=== PATIENT | male | born 1990 | race Caucasian/White ===

== ENCOUNTER 2023-07-23 07:21 | Observation (INO) | payer SELFPAY ==
[2023-07-23] VITALS (17 sets, daily range): BP systolic 131–167; BP diastolic 68–95; PULSE 71–103; RESP 12–27; TEMP 36.1–36.9; O2SAT 95–100
--- NOTE | 2023-07-23 | ECHO_ITS ---
Patient Info Name: Shaggy Avila Age: 32 years : 1990 Gender: Male Ht: 72 in Wt: 275 lbs BSA: 2.56 m2 HR: 98 bpm BP: 141 / 76 mmHg Heart Rhythm: Sinus Rhythm Technical Quality: Good Exam Date: 07/23/2023 12:39 PM Exam Location: Echo Lab Patient Status: Outpatient Admit Date: 07/23/2023 Staff Ordering Physician: Sara Doshi MD Workers Compensation Defense Attorney: Damian Chavez RDCS Attending Provider: Nik Ray MD Referring Physician: Glenda NORIEGA; Exam Type: CA echo doppler color flow Study Info Indications - CHEST PAIN, ELEVATED TROPONIN Complete two-dimensional, color flow and Doppler transthoracic echocardiogram is performed. Summary 1. Complete two-dimensional, color flow and Doppler transthoracic echocardiogram is performed. 2. Normal left ventricular size and thickness with good contractility of all segments. Normal diastolic function. Ejection fraction 60-65%. 3. No significant valve disease. 4. No pericardial effusion. 5. Normal estimated pulmonary pressure. 6. Normal sinus rhythm. Left Ventricle Left ventricular chamber dimension is normal. Left ventricular systolic function is normal, estimated at 60-65%. There is no increased left ventricular wall thickness. Left ventricular septal wall motion is normal. The left ventricular diastolic function is normal. Right Ventricle Right ventricular chamber dimension is normal. Right ventricular systolic function is normal. Left Atria Left atrial chamber dimension is normal. Right Atria Right atrial chamber dimension is normal. Aortic Valve The aortic valve is trileaflet. There is no aortic valve sclerosis. There is no aortic valve stenosis. There is no aortic valve regurgitation. Pulmonic Valve The pulmonic valve is normal. There is no pulmonic valve stenosis. There is no pulmonic regurgitation. Mitral Valve The mitral valve has normal leaflets. There is no mitral valve stenosis. There is no mitral valve regurgitation. Tricuspid Valve The tricuspid valve leaflets are normal. There is no significant tricuspid valve stenosis. There is trace tricuspid valve regurgitation. No pulmonary hypertension, estimated pulmonary arterial systolic pressure is 29 mmHg. Pericardium/Pleural The pericardium appears normal. There is no pericardial effusion. Inferior Vena Cava Not well visualized inferior vena cava with >50% collapse upon inspiration consistent with Empty right atrial pressure, 10 mmHg. Aorta The aortic root size at the sinus of Valsalva is normal. The prox ascending aorta size is normal. Left Ventricular Outflow Tract Name Value Normal LVOT 2D LVOT Diameter 2.0 cm LVOT Doppler LVOT Peak Gradient 4 mmHg LVOT Mean Gradient 2 mmHg LVOT VTI 29 cm LVOT VTI/AV VTI Ratio 1.0 LVOT Stroke Volume 90 ml LVOT CO 4.9 l/min LVOT CI 1.9 l/min/m2 Pulmonic Valve Name Value Normal -----
--- NOTE | ~2023-07-23 | XR_ITS ---
XR chest 2V DATE: 07/23/2023 08:11 INDICATION: Midsternal and left-sided chest pain beginning today TECHNIQUE: AP and lateral views COMPARISON: None FINDINGS: Normal heart size. No hilar or mediastinal enlargement. No pulmonary infiltrate or consolid ation, pleural effusion or pulmonary vascular congestion or pneumothorax. IMPRESSION: No active cardiopulmonary disease Reviewed, dictated and finalized at location A. CRANE OPERATOR
--- NOTE | 2023-07-23 07:23 | ECG_ITS ---
Measurements Intervals [place] Rate: 71 P: 9 MI: 155 QRS: -21 QRSD: 99 T: 4 QT: 383 QTc: 417 Interpretive Statements SINUS RHYTHM VOLTAGE CRITERIA FOR LVH [MEETS CRITERIA IN ONE OF: R(aVL), S(V1), R(V5), R(V5/V6)+S(V1)] NO PREVIOUS ECG AVAILABLE FOR COMPARISON Electronically Signed On 07-23-2023 9:11:11 [facility]OSPITAL LIAISON by Moni Holden M.D.
[2023-07-23 07:54] LABS: Basophils Percent Auto 0.5 % (0.2-1.2); Eosinophils Absolute Auto 0.1 K/mm3 (0-0.3); Eosinophils Percent Auto 0.6 % (0-4.4); Hematocrit 43.6 % (42.0-52.0); Hemoglobin 14.7 g/dL (14.0-18.0); Immature Granulocyte Absolute 0.02 K/mm3 (0.00-0.031); Immature Granulocyte Percent A 0.2 % (0-0.5); Lymphocytes Absolute Auto 1.58 K/mm3 (0.9-3.2); Lymphocytes Percent Auto 19.2 % (18.3-44.2); Mean Corpuscular HGB Conc 33.7 g/dl (32-36); Mean Corpuscular Hemoglobin 28.8 pg (26-34); Mean Corpuscular Volume 85.3 fl (80-100); Mean Platelet Volume 10.8 fl (7.4-10.4); Monocytes Absolute Auto 0.4 K/mm3 (0.1-0.6); Monocytes Percent Auto 5.1 % (2.6-8.5); Neutrophils Absolute Auto 6.1 K/mm3 (1.3-6.7); Neutrophils Percent Auto 74.4 % (45.5-73.1); Platelet Count Result 235 k/mm3 (150-375); Red Blood Count 5.11 M/mm3 (4.6-6.20); Red Cell Distribution Width 12.4 % (11.5-14.5); White Blood Count 8.2 K/mm3 (4.5-10.0)
[2023-07-23 08:08] LABS: Alanine Aminotransferase 42 U/L (6-50); Alkaline Phosphatase 108 U/L (38-126); Anion Gap 13 mmol/L (8-16); Aspartate Amino Transferase 40 U/L (17-59); Bilirubin,Total 0.4 mg/dL (0.2-1.3); Blood Urea Nitrogen 16 mg/dL (9-20); Calcium 9.3 mg/dL (8.4-10.2); Carbon Dioxide 24 mmol/L (22-30); Chloride 101 mmol/L (98-107); Estimated CRCL calculation 127 ml/min; Estimated Glomerular Filt Rate > 60; Glucose 150 mg/dL (65-110); Lipase 94 U/L (23-300); Potassium 4.1 mmol/L (3.4-5.0); Sodium 138 mmol/L (137-145)
[2023-07-23 08:22] LABS: Troponin I 0.057 ng/mL (0.000-0.034)
[2023-07-23 08:31] LABS: INR 0.9; Partial Thromboplastin Time 25.5 SECONDS (22.3-36.8); Prothrombin Time 12.5 Seconds (11.1-14.7)
--- NOTE | 2023-07-23 09:12 | ED.CHESTPAIN ---
HPI - Chest Pain General Chief Complaint: Chest Pain Stated Complaint: chest pain Time Seen by Provider: 07/23/23 07:23 Source: patient, EMS, RN notes reviewed and old records reviewed Mode of arrival: EMS Limitations: no limitations History of Present Illness HPI narrative: This is a 32 year old male who presents for evaluation of chest pain. PAtient reports left sternal chest pain that started around 6 am. He states patient was sharp and nonradiating. He reports it has been constant but it is not as severe any more. He denies associated nausea, vomiting URI symptoms, fever, chills, cough or shortness of breath. He denies history of similar pain in the past. Related Data Home Medications Medication Instructions Recorded Confirmed No Home Medications 07/23/23 07/23/23 Allergies Allergy/AdvReac Type Severity Reaction Status Date / Time No Known Allergies Allergy Verified 07/23/23 11:33 Review of Systems Review of Systems: All systems reviewed & are unremarkable except as noted in HPI and below PMFSH Past Medical History Medical History (Updated 07/23/23 @ 17:09 by Sara Doshi MD) Patient denies medical problems Surgical History Surgical History (Updated 07/23/23 @ 12:36 by Moni Holden MD) H/O brain surgery Had brain surgery when he was 1 or 1 years old for a cyst No pertinent past surgical history Family History Family History (Updated 07/23/23 @ 12:36 by Moni Holden MD) Father Alive and well Mother Alive and well Social History Social History (Updated 07/23/23 @ 14:45 by Nik Ray MD) Social History: Lives with his father. Lifelong nonsmoker. No alcohol or drug use. He lives with his father, brothers, sisters and a nephew. Graduated from high school. Employed in industrial cleaning. Full Code. Nominates his father to be the indivdual that would make medical decisions for him if he is unable. Smoking status: Never smoker Alcohol intake: never Do You Feel Safe in your Home?: Yes Lack of Transportation: No Lack of Food: Never True Current Housing: I Have Housing Concerned About Future Housing: No Difficulty Paying Gas/Electric Bills: No Difficulty Paying for Meds: No Currently Unemployed: No Education: High School Diploma/GED Difficulty w/ Childcare or Family Care: No Spiritual care concerns: No Exam Const: General: no acute distress and alert Nutritional Appearance: well nourished Orientation/consciousness: patient oriented x3 Other: poor hygiene HENMT: Head: normal to inspection Eyes: EOM: EOMs intact bilaterally Chest: Chest palpation & inspection: normal inspection of the chest Resp: Effort & Inspection: normal respiratory effort Auscultation: clear to auscultation bilaterally Cardio: Rate: regular rate Rhythm: regular rhythm Heart sounds: no murmurs GI: GI Palp: Yes Soft to palpation, No Tenderness to palpation present (GI), No Guarding due to palpation present (GI), No Rigid due to palpation and No Hernia present Auscultation: normal bowel sounds Skin: General skin exam: normal color Rashes: no rashes Wounds: no wounds Neuro: General: patient oriented x3, moves all extremities and CN's II-XI intact bilaterally Psych: Mental Status: mental status grossly normal Affect: normal affect Attitude: cooperative Course Reevaluation(s) Reevaluation #1: I Discussed with patient that he will need to be admitted for evaluation of his heart due to elevated troponin. He states he understands. Date: 07/23/23 Time: 09:15 Consultations Consultation #1: I spoke with Dr. Holden with cardiology. She agrees patient should be admitted to hospitalist. Agrees with aspirin and ECHO. They will consult Date: 07/23/23 Time: 09:35 Consultation #2: Dr. Ray accepts to hospitalist service. REquest d dimer to assess for PE before admission. Date: 07/23/23 Time: 09:37 Vital Signs Vital signs: Vital Signs
[2023-07-23] MEDS: ASPIRIN 81 MG CHEWABLE TABLET 324 MG PO (09:38)
[2023-07-23 09:44] LABS: Amphetamine Screen Urine Negative (Negative); Barbiturate Screen Urine Negative (Negative); Benzodiazepines Screen Urine Negative (Negative); Cannabinoid Screen Urine Negative (Negative); Cocaine Screen Urine Negative (Negative); Methadone Screen Urine Negative (Negative); Opiate Screen Urine Negative (Negative); Phencyclidine Screen Urine Negative (Negative)
[2023-07-23 10:12] LABS: D Dimer 0.28 ug/mL (<0.48)
--- NOTE | 2023-07-23 10:15 | ECG_ITS ---
Measurements Intervals [place] Rate: 78 P: 23 [place]: 165 QRS: -26 QRSD: 94 T: 2 QT: 369 QTc: 423 Interpretive Statements SINUS RHYTHM POSSIBLE LEFT ATRIAL ENLARGEMENT [-0.1mV P WAVE IN V1/V2] POSSIBLE LEFT VENTRICULAR HYPERTROPHY [VOLTAGE CRITERIA PLUS LAE OR QRS WIDENING] POOR R-WAVE PROGRESSION COMPARED TO ECG 07/23/2023 07:32:28 NO SIGNIFICANT CHANGES Electronically Signed On 07-23-2023 19:50:27 GRAIN ELEVATOR OPERATOR by Moni Holden M.D.
[2023-07-23 11:06] LABS: Troponin I < 0.012 ng/mL (0.000-0.034)
--- NOTE | 2023-07-23 11:33 | ADMGEN ---
This patient, Shaggy Avila, was admitted to IMU Room 212-01. Patient/family oriented to hospital policies and general routines including ID bracelet, bed and alarms, visiting hours, pain management, procedures, bathroom and other care routines, personal items, smoking policy, room service/diet, and visiting hours. Information on how to activate the Rapid Response Team has been discussed. Patient/Family are encouraged to report perceived risks to care and to ask questions if they do not understand what they are told or what they should do.
--- NOTE | 2023-07-23 12:07 | PM.CNCAR ---
Assessment and Plan Assessment and plan (1) Chest pain: Code(s): R07.9 - Chest pain, unspecified Status: Acute Assessment and Plan: Very unusual situation with chest pain and 1 elevated troponin in a young man with no risk factors. Also unusual that the 2nd troponin was normal. Coronary disease seems very unlikely in this age range, with no risk factors, unless there something unusual like coronary artery aneurysm etc. However, no H/O Kawasaki's dz. Consider a myocarditis as well but no EKG changes, elevated white count etc. Nothing on exam to suggest pericarditis. D-dimer was normal. No fever. and the CP does not appear musculoskeletal on exam. --echo --I have asked the lab to rerun the 1st 2 troponins --continue serial troponins --ASA, SL NTG --Further recommendations to follow. (2) Elevated troponin: Code(s): R79.89 - Other specified abnormal findings of blood chemistry Status: Acute Assessment and Plan: One slightly elevated troponin, follow-up troponin was normal, which is very unusual. Unclear which is correct --lab is re- running the 1st 2 troponins (3) Elevated blood pressure reading: Code(s): R03.0 - Elevated blood-pressure reading, without diagnosis of hypertension Status: Acute Assessment and Plan: Blood pressure has been mildly elevated this admission History of Present Illness History of Present Illness Consult date/time: 07/23/23 12:07 Reason For Visit: chest pain Narrative: Shaggy Avila is a 32-year-old male whom we are asked to see at the request of Dr. Doshi for advice and opinion regarding his chest pain and elevated troponin, in consultation. The patient has been a healthy individual in his normal state of health recently. This morning he awoke around 6:00 a.m. with very intense sharp substernal chest discomfort and could not get comfortable. It then transition to a tight feeling. No better sitting up, worse with walking, questionably better lying down, nonpleuritic, nontender. There is no associated nausea vomiting shortness of breath. His father brought him to the emergency room. The pain has improved spontaneously, but has not completely resolved. No history of hypertension, diabetes, smoking, high cholesterol. No drug use. No family history of CAD. No sick contacts, fevers, cough. Has been able to do heavy work at his job with no particular problems. No unusually physical activity recently. Troponin 0.057, then less than 0.012 Drug screen negative White cell count normal D Dimer normal EKG 07/23/2023 7:32 a.m.: NSR, possible LVH, poor R-wave progression EKG 07/23/2023 10:34 a.m.: NSR, LVH, poor R-wave progression Both EKGs personally reviewed, no ischemic changes, no CA depression. Chest x-ray: No acute cardiopulmonary disease. Personally reviewed, agree. Review of Systems Constitutional: Constitutional: Denies fever(s) Eyes: Eyes: Reports no additional eye complaints ENT: Reports system reviewed and no additional complaints, except as documented Cardiovascular: Cardiovascular: Reports chest pain, Denies pedal edema, Denies lightheadedness and Denies dyspnea Respiratory: Respiratory: Denies chest congestion and Denies dyspnea Gastrointestinal: Gastrointestinal: Denies abdominal pain and Denies hematochezia Genitourinary: Genitourinary: Denies hematuria Musculoskeletal: Musculoskeletal: Reports no additional musculoskeletal complaints Integumentary/Breasts: Skin/Breast: Reports system reviewed and no additional complaints, except as docu Neurologic: Reports system reviewed and no additional complaints, except as documented and Denies behavioral changes Psychiatric: Psychiatric: Denies behavioral changes [facility] Past Medical History Medical History (Updated 07/23/23 @ 12:39 by Moni Holden MD) Patient denies medical problems Surgical History Surgical History (Updated 07/23/23 @ 12:36 by Hosea
[2023-07-23] MEDS: ONDANSETRON INJ 4 MG/2 ML VIAL IV PUSH (13:28)
[2023-07-23 13:51] LABS: Troponin I < 0.012 ng/mL (0.000-0.034)
--- NOTE | 2023-07-23 14:34 | PM.IMHP ---
H&P: HPI History of Present Illness Date/Time: 07/23/23 14:34 Chief Complaint: Chest pain Narrative: 32yo healthy male who presents with acute onset of chest pain. Patient was awoken this morning around 6am with sharp, stabbing chest pain. Never had this before. Located in the lower sternal area. Not associated with SOB, nausea, vomiting or diaphoresis. no radiation to the pain. Pain was slightly palpable but not pleuritic. Not on medications. No new OTC medications. 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 No fever, chills, headache, vision changes, hearing changes, abdominal pain, back pain or urinary symptoms. He denies having pain or other symptoms when eating. No recent travel and no sick contacts. He presented to the ED for evalution. In the ED, he was hemodynamically stable. BP was elevated. he was mildly tachypneic but not tachycardic or hypxoc. CBC and CMP normal ecept for glucose of 150. Troponin 0.057 with 2nd and 3rd value normal. UDS negative. D-dimer was normal. Lipase normal. CXR was clear and EKG showing normal sinus rhythm with voltage criteria for LVH. he was given aspirin and admitted for further care. After admission and after just finishing his Echo, the patient had an episode of nausea and vomiting. Review of Systems Review of Systems: All systems reviewed & are unremarkable except as noted in HPI and below PMFSH Past Medical History Medical History (Updated 07/23/23 @ 14:52 by Nik Ray MD) Patient denies medical problems Surgical History Surgical History (Updated 07/23/23 @ 12:36 by Moni Holden MD) H/O brain surgery Had brain surgery when he was 1 or 1 years old for a cyst No pertinent past surgical history Family History Family History (Updated 07/23/23 @ 12:36 by Moni Holden MD) Father Alive and well Mother Alive and well Social History Social History (Updated 07/23/23 @ 14:45 by Nik Ray MD) Social History: Lives with his father. Lifelong nonsmoker. No alcohol or drug use. He lives with his father, brothers, sisters and a nephew. Graduated from high school. Employed in industrial cleaning. Full Code. Nominates his father to be the indivdual that would make medical decisions for him if he is unable. Smoking status: Never smoker Alcohol intake: never Do You Feel Safe in your Home?: Yes Lack of Transportation: No Lack of Food: Never True Current Housing: I Have Housing Concerned About Future Housing: No Difficulty Paying Gas/Electric Bills: No Difficulty Paying for Meds: No Currently Unemployed: No Education: High School Diploma/GED Difficulty w/ Childcare or Family Care: No Spiritual care concerns: No Meds Home Medications and Allergies Home Medications Medication Instructions Recorded Confirmed Type No Home Medications 07/23/23 07/23/23 History Allergies Allergy/AdvReac Type Severity Reaction Status Date / Time No Known Allergies Allergy Verified 07/23/23 11:33 Vital Signs Vital Signs - 24 hr 07/23/23 07:27 07/23/23 07:27 07/23/23 07:32 Temperature 97.6 F Pulse Rate 71 76 77 Respiratory Rate 16 27 H 21 H Blood Pressure 153/88 H 153/88 H 134/91 H Pulse Oximetry 96 97 95 Oxygen Delivery 07/23/23 08:13 07/23/23 08:17 07/23/23 08:41 Temperature Pulse Rate 81 79 81 Respiratory Rate 23 H 12 13 Blood Pressure 135/88 131/72 149/78 H Pulse Oximetry 97 99 97 Oxygen Delivery 07/23/23 08:47 07/23/23 10:38 07/23/23 11:01 Temperature Pulse Rate 74 78 79 Respiratory Rate 14 25 H 26 H Blood Pressure 141/76 H 133/68 138/89 Pulse Oximetry 98 100 Oxygen Delivery 07/23/23 12:00 07/23/23 12:00 07/23/23 12:00 Temperature 97.8 F Pulse Rate 94 103 H Respiratory Rate 20 Blood Pressure 167/86 H Pulse Oximetry 99 Oxygen Delivery Room Air Exam Narrative: AF 97.8 167/86 103 20 99% ra Gen - well-nourished, well-developed unkempt mal
[2023-07-23 16:20] LABS: Glucose Point of Care 143 mg/dl (65-105)
[2023-07-23] MEDS: PANTOPRAZOLE SODIUM IV 40 MG VIAL IV PUSH (16:33)
[2023-07-23 17:19] LABS: SARS-CoV-2 RNA PCR Negative (Negative)
[2023-07-23 20:16] LABS: Glucose Point of Care 132 mg/dl (65-105)
[2023-07-23] MEDS: PANTOPRAZOLE 40 MG TABLET PO (21:05)
[2023-07-24] VITALS (11 sets, daily range): BP systolic 126–131; BP diastolic 55–86; PULSE 72–90; RESP 18–21; TEMP 35.6–36.5; O2SAT 95–97
[2023-07-24 04:57] LABS: Basophils Percent Auto 0.4 % (0.2-1.2); Eosinophils Absolute Auto 0.1 K/mm3 (0-0.3); Hematocrit 42.8 % (42.0-52.0); Hemoglobin 14.4 g/dL (14.0-18.0); Immature Granulocyte Absolute 0.02 K/mm3 (0.00-0.031); Immature Granulocyte Percent A 0.3 % (0-0.5); Lymphocytes Absolute Auto 1.85 K/mm3 (0.9-3.2); Lymphocytes Percent Auto 23.2 % (18.3-44.2); Mean Corpuscular HGB Conc 33.6 g/dl (32-36); Mean Corpuscular Hemoglobin 29.1 pg (26-34); Mean Corpuscular Volume 86.6 fl (80-100); Mean Platelet Volume 11.3 fl (7.4-10.4); Monocytes Absolute Auto 0.7 K/mm3 (0.1-0.6); Monocytes Percent Auto 8.3 % (2.6-8.5); Neutrophils Absolute Auto 5.3 K/mm3 (1.3-6.7); Neutrophils Percent Auto 66.8 % (45.5-73.1); Platelet Count Result 238 k/mm3 (150-375); Red Blood Count 4.94 M/mm3 (4.6-6.20); Red Cell Distribution Width 12.8 % (11.5-14.5)
[2023-07-24 05:03] LABS: Alanine Aminotransferase 35 U/L (6-50); Albumin Level 4.5 g/dL (3.5-5.1); Alkaline Phosphatase 87 U/L (38-126); Anion Gap 11 mmol/L (8-16); Aspartate Amino Transferase 27 U/L (17-59); Bilirubin,Total 0.7 mg/dL (0.2-1.3); Blood Urea Nitrogen 12 mg/dL (9-20); Calcium 8.9 mg/dL (8.4-10.2); Carbon Dioxide 22 mmol/L (22-30); Chloride 103 mmol/L (98-107); Estimated CRCL calculation 123 ml/min; Estimated Glomerular Filt Rate > 60; Glucose 117 mg/dL (65-110); Lipase 60 U/L (23-300); Sodium 136 mmol/L (137-145)
[2023-07-24 05:09] LABS: Hemoglobin A1C 5.7 % (<5.7)
[2023-07-24 08:09] LABS: Glucose Point of Care 121 mg/dl (65-105)
[2023-07-24] MEDS: ASPIRIN 81 MG CHEWABLE TABLET PO (08:32)
[2023-07-24] MEDS: PANTOPRAZOLE 40 MG TABLET PO (08:32)
[2023-07-24 12:13] LABS: Glucose Point of Care 109 mg/dl (65-105)
--- NOTE | 2023-07-24 15:17 | PM.DS ---
DS: Admitting Diagnosis Discharge Date 07/24/23 Admitting Diagnosis Chest pain DS: Discharge Diagnosis Discharge Diagnosis (1) Chest pain: Code(s): R07.9 - Chest pain, unspecified Status: Acute (2) Elevated troponin: Code(s): R79.89 - Other specified abnormal findings of blood chemistry Status: Acute (3) Elevated blood pressure reading: Code(s): R03.0 - Elevated blood-pressure reading, without diagnosis of hypertension Status: Acute (4) Abdominal pain: Code(s): R10.9 - Unspecified abdominal pain Status: Acute (5) Nausea & vomiting: Code(s): R11.2 - Nausea with vomiting, unspecified Status: Acute (6) H/O brain surgery: Code(s): Z98.890 - Other specified postprocedural states Status: Acute (7) Hyperglycemia: Code(s): R73.9 - Hyperglycemia, unspecified Status: Acute Plan Patient presents to the ED with complaints of acute onset chest pain occurred at rest. Atypical presentation for ischemia but troponin was elevated. Cardiology was consulted. The troponin was re-ran and returned normal. This explains why the 2nd and 3rd troponin had normalized quickly. As such, patient did not have elevated troponins. He does have elevated blood pressure and probably has undiagnosed hypertension especially given the EKG findings. Echocardiogram has been ordered results are pending. He has some mild epigastric pain probably gastritis. Suspect his chest pain and now nausea with vomiting consistent with esophageal reflux or gastritis or gastroenteritis. COVID can cause GI symptoms so we will check COVID test. Lipase is normal. Will repeat lipase and other lab values in the morning. Will start Protonix. Will continue aspirin. Glucose elevated and could be stress response ut will check A1c and place on sliding scale protocol. Further recommendation as course dictates. DS: Summary Hospital Course Reason for hospitalization: 32yo healthy male who presents with acute onset of chest pain.? Please see H&P for details. Hospital Course: Patient presents to the ED with complaints of acute onset chest pain occurred at rest. Atypical presentation for ischemia but troponin was elevated. Cardiology was consulted. The troponin was re-ran and returned normal. This explains why the 2nd and 3rd troponin had normalized quickly. As such, patient did not have elevated troponins. He did have elevated blood pressure and may have undiagnosed hypertension especially given the EKG findings. Echocardiogram ws normal with EF 60%. He has some mild epigastric pain probably gastritis. Suspect his chest pain and now nausea with vomiting consistent with esophageal reflux or gastritis or gastroenteritis. COVID-19 PCR negative. Lipase was normal. Started Protonix. Glucose elevated and probably stress response. A1c 5.7%. No recurrent chest pain. He overall did well was able be discharged home on 07/24/2023. Adhering to a healthy lifestyle was discussed with patient. Status at Discharge Cognitive/behavioral status at discharge: Stable Time Spent with Patient Time attestation: Total time spent providing and/or coordinating discharge services: 35 minutes Time spent: Greater than 30 minutes Exam Narrative: AF 96.1 131/86 86 18 97% ra Gen - NARD Chest - CTA bilaterally, nml RR CV - RRR S1/S2. Tele showing no significant dysrhythmias Abd - Soft, NT/ND, Positive BS Ext - No pedal edema Neuro - Alert and oriented. Nonfocal exam. Psych - Nml mood and affect Skin - Warm and dry DS: Data Data Completed and Pending Labs on day of discharge: Labs from last 24 hours 07/24/23 07/24/23 07/24/23 11:49 08:00 04:29 WBC 8.0 RBC 4.94 Hgb 14.4 Hct 42.8 MCV 86.6 MCH 29.1 MCHC 33.6 RDW 12.8 Plt Count 238 MPV 11.3 H Immature Gran % (Auto) 0.3 Neut % (Auto) 66.8 Lymph % (Auto) 23.2 [place] % (Auto) 8
== END 2023-07-24 16:33 | disposition home or self-care (01) ==
LOC: ANHED 08:27 → ANHIMU 11:05
PROVIDERS: Admitting Provider Internal Medicine; Emergency Provider General Practice; Visit Provider Internal Medicine
DX: R07.9 Chest pain, unspecified (principal); R73.9 Hyperglycemia, unspecified; R10.9 Unspecified abdominal pain; R94.31 Abnormal electrocardiogram [ECG] [EKG]; R03.0 Elevated blood-pressure reading, without diagnosis of hypertension; R06.82 Tachypnea, not elsewhere classified; Z20.822 Contact with and (suspected) exposure to COVID-19; R11.2 Nausea with vomiting, unspecified; Z98.890 Other specified postprocedural states
CPT/HCPCS: 36415; 71046; 80053; 80307; 82948; 83036; 83690; 84443; 84484; 85025; 85380; 85610; 85730; 87635; 93005; 93306; 96374; 96375; A9270; C9113; G0378; J2405

== ENCOUNTER 2025-06-22 05:46 | Emergency (ER) | payer SELFPAY ==
[2025-06-22] VITALS (22 sets, daily range): BP systolic 137–148; BP diastolic 82–93; PULSE 85–105; RESP 14–26; O2SAT 95–100
--- NOTE | ~2025-06-22 | XR_ITS ---
Examination: XR chest 1V portable Clinical History: chest pain Comparison: 07/23/2023 Technique: Portable AP Findings: Heart size normal. Lungs clear. No acute bony abnormality. IMPRESSION: 1. No acute cardiopulmonary findings given portable technique. Reviewed, dictated and finalized at location R. OF IT
--- NOTE | 2025-06-22 05:49 | ECG_ITS ---
Test Date: 2025-06-22 06:15:27 Measurements Intervals [place] Rate: 91 P: 34 SD: 173 QRS: -18 QRSD: 96 T: 18 QT: 350 QTc: 431 Interpretive Statements SINUS RHYTHM VOLTAGE CRITERIA FOR LVH [MEETS CRITERIA IN ONE OF: R(aVL), S(V1), R(V5), R(V5/V6)+S(V1)] No previous ECG available for comparison Electronically Signed On 06-22-2025 06:43:04 BENCH MANAGER by Delano George M.D.
[2025-06-22] MEDS: ASPIRIN 81 MG CHEWABLE TABLET 324 MG PO (06:01)
--- NOTE | 2025-06-22 06:15 | ED_ITS ---
HPI - Chest Pain General Chief Complaint: Chest Pain <Nicolas Xiong MD - Last Filed: 06/22/25 06:58> Stated Complaint: chest pain <Nicolas Xiong MD - Last Filed: 06/22/25 06:58> Time Seen by Provider: 06/22/25 05:50 <Nicolas Xiong MD - Last Filed: 06/22/25 06:58> History of Present Illness HPI narrative: 34-year-old male presenting to the emergency department today with chest pain that woke up from sleep. Patient states he was not doing any exertion or strenuous and woke up around 1:00 a.m. with sharp chest pain in the center of his chest. Pain did not respond to Tylenol at home and was getting worse. [place] like somebody was sitting on his chest according to the patient. Has had similar chest pains in the past and was admitted to the hospital 2 years ago where he was found to have elevated troponins but negative cardiac workup otherwise and seen by Cardiology at that time. Has not had any issues in the last 2 years and does not take any medications or follow with Cardiology presently. Denies any abdominal pain or back pain. No fever, chills. No jaw pain or radiating pain from his chest. Patient presents via walk-in triage and is diaphoretic on arrival. Placed in room 2 for evaluation. <Nicolas Xiong MD - Last Filed: 06/22/25 06:58> Related Data Allergies/Adverse Reactions: Allergies Allergy/AdvReac Type Severity Reaction Status Date / Time No Known Allergies Allergy Verified 06/22/25 06:11 <Nicolas Xiong MD - Last Filed: 06/22/25 06:58> Review of Systems 2 Review of Systems: as reviewed above in HPI <Nicolas Xiong MD - Last Filed: 06/22/25 06:58> All systems reviewed & are unremarkable except as noted in HPI and below < Nicolas Xiong MD - Last Filed: 06/22/25 06:58> [facility] Past Medical History Medical History: Medical History Patient denies medical problems <Nicolas Xiong MD - Last Filed: 06/22/25 06:58> Surgical History Surgical History: Surgical History H/O brain surgery Had brain surgery when he was 1 or 1 years old for a cyst No pertinent past surgical history <Nicolas Xiong MD - Last Filed: 06/22/25 06:58> Family History Family History: Family History Father Alive and well Mother Alive and well <Nicolas Xiong MD - Last Filed: 06/22/25 06:58> Social History Social History: Social History Social History: Lives with his father. Lifelong nonsmoker. No alcohol or drug use. He lives with his father, brothers, sisters and a nephew. Graduated from high school. Employed in [employer]. [employer]. Nominates his father to be the indivdual that would make medical decisions for him if he is unable. Smoking status: Never smoker Alcohol intake: never Do You Feel Safe in your Home?: Yes Lack of Transportation: No Lack of Food: Never True Current Housing: I Have Housing Concerned About Future Housing: No Difficulty Paying Gas/Electric Bills: No Difficulty Paying for Meds: No Currently Unemployed: No Education: High School Diploma/GED Difficulty w/ Childcare or Family Care: No Spiritual care concerns: No <Nicolas Xiong MD - Last Filed: 06/22/25 06:58> Exam 2 Narrative: GENERAL: Diaphoretic and in distress, awake alert answering all questions appropriately HEAD: [Normocephalic, atraumatic.] EYES: [PERRLA and EOMI.] ENT: Nares clear, no rhinorrhea or epistaxis. Mucous membranes moist. NECK: Supple. CHEST: [Clear to auscultation. No respiratory distress.] HEART: [Regular rate and rhythm]. No murmur heard. [Normal peripheral pulses.] ABDOMEN: [Soft, nondistended], [nontender], [No rigidity or guarding] EXTREMITIES: Normal range of motion. [No edema.] SKIN: Warm, dry, no rash. NEURO: [No focal deficits]. Alert and oriented [x3.] PSYCH: [Normal mood and affect.] <Nicolas Xiong MD - Last Filed: 06/22/25 06:58> Course Course Emergency Course: Patient resting comfortably. No chest pain here. Troponin negative x3. Feel patient is appropriate for discharge home. May have had esophageal spasm. Will start on PPI. Discussed need for follow-up with a primary care physician. Discussed return to ER should symptoms recur. Patient verbalized understanding. Discharge home. <Cirilo Watts MD - Last Filed: 06/22/25 12:38> Vital Signs Vital signs: Vital Signs Pulse Rate 88 06/22/25 05:49 Respiratory Rate 14 06/22/25 05:49 Pulse Oximetry 98 06/22/25 05:49 Oxygen Delivery Room Air 06/22/25 05:49 Pulse Rate 96 06/22/25 12:00 Respiratory Rate 22 H 06/22/25 12:00 Blood Pressure 146/86 H 06/22/25 12:00 Pulse Oximetry 98 06/22/25 12:00 Oxygen Delivery Room Air 06/22/25 05:58 <Nicloas Xiong MD - Last Filed: 06/22/25 06:58> Vital Signs Pulse Rate 88 06/22/25 05:49 Respiratory Rate 14 06/22/25 05:49 Pulse Oximetry 98 06/22/25 05:49 Oxygen Delivery Room Air 06/22/25 05:49 Pulse Rate 96 06/22/25 12:00 Respiratory Rate 22 H 06/22/25 12:00 Blood Pressure 146/86 H 06/22/25 12:00 Pulse Oximetry 98 06/22/25 12:00 Oxygen Delivery Room Air 06/22/25 05:58 <Cirilo Watts MD - Last Filed: 06/22/25 12:38> MDM - Chest Pain MDM Narrative Medical decision making narrative: 34-year-old male presenting to the emergency department today with chest pain that woke up from sleep. Patient states he was not doing any exertion or strenuous and woke up around 1:00 a.m. with sharp chest pain in the center of his chest. Pain did not respond to Tylenol at home and was getting worse. [place] like somebody was sitting on his chest according to the patient. Has had similar chest pains in the past and was admitted to the hospital 2 years ago where he was found to have elevated troponins but negative cardiac workup otherwise and seen by Cardiology at that time. Has not had any issues in the last 2 years and does not take any medications or follow with Cardiology presently. Denies any abdominal pain or back pain. No fever, chills. No jaw pain or radiating pain from his chest. Patient presents via walk-in triage and is diaphoretic on arrival. Placed in room 2 for evaluation. patient is mildly hypertensive in the 140s 150 systolic but saturating 99% on room air without any tachycardia. No tachypnea. He is diaphoretic and appears in distress but able to answer all questions appropriately. At this time given his chest pain and diaphoresis concern is for potential ACS, coronary vasospasm, less likely thromboembolic event or aortic process such as dissection or aneurysm. Patient has no cardiac risk factors but has had elevated troponins previously several years ago. Cardiac workup ordered this time including serial troponins and a dimer. Patient is given Dilaudid and nitroglycerin placed on director database and frequently re-evaluated. EKG shows no ST segment elevations or depressions. Does have LVH and appear similar to previous EKGs. Patient did have improvement in pain but still rates it 9/10. Given nitroglycerin topical ointment on top of his dilaudid that he received. No longer sweating and diaphoretic. Vital signs remained stable. Could be potentially something like vasospastic angina as he has had same presentation previously with elevated troponins with no findings on workup otherwise at that time. Awaiting laboratory studies and troponin. Patient care signed over to morning physician pending completion of workup and final disposition. < Nicolsa Xiong MD - Last Filed: 06/22/25 06:58> Medical Records Data Attestation: I reviewed the patient's medical records. <Nicolas Xiong MD - Last Filed: 06/22/25 06:58> Lab Data Attestation: I reviewed the patient's lab results. <Nicolas Xiong MD - Last Filed: 06/22/25 06:58> Result diagrams: 06/22/25 06:29 06/22/25 06:29 <Nicolas Xiong MD - Last Filed: 06/22/25 06:58> Labs: Lab Results 06/22/25 06/22/25 06/22/25 Range/Units 06:29 07:18 09:02 WBC 10.6 H (4.5-10.0) K/mm3 RBC 4.93 (4.6-6.20) M/mm3 Hgb 14.2 (14.0-18.0) g/dL Hct 42.1 (42.0-52.0) % MCV 85.4 (80-100) fl MCH 28.8 (26-34) pg MCHC 33.7 (32-36) g/dl RDW 12.8 (11.5-14.5) % Plt Count 219 (150-375) k/mm3 MPV 11.2 H (7.4-10.4) fl Immature Gran % (Auto) 0.5 (0-0.5) % Neut % (Auto) 84.6 H (45.5-73.1) % Lymph % (Auto) 10.7 L (18.3-44.2) % Clinch % (Auto) 3.9 (2.6-8.5) % Eos % (Auto) 0.1 (0-4.4) % Baso % (Auto) 0.2 (0.2-1.2) % Lymph # (Auto) 1.13 (0.9-3.2) K/mm3 Clinch # (Auto) 0.4 (0.1-0.6) K/mm3 Eos # (Auto) 0.0 (0-0.3) K/mm3 Baso # (Auto) 0.0 (0.0-0.1) K/mm3 Abs Immat Gran (auto) 0.05 H (0.00-0.031) K/mm3 Absolute Neuts (auto) 9.0 H (1.3-6.7) K/mm3 Absolute Nucleated RBC 0.000 (0.0-0.012) K/mm3 Nucleated RBC % 0.0 (0.0-0.2) % PT 12.4 (11.1-14.7) Seconds INR 0.9 APTT 24.8 (22.3-36.8) Seconds D-Dimer < 0.27 (<0.48) ug/mL Sodium 135 L (137-145) mmol/L Potassium 3.9 (3.4-5.0) mmol/L Chloride 99 (98-107) mmol/L Carbon Dioxide 23 (22-30) mmol/L Anion Gap 13 H (4-12) mmol/L BUN 14 (9-20) mg/dL Creatinine 0.84 (0.7-1.3) mg/dL Estim Creat Clear Calc 141 ml/min Estimated GFR > 60 (59 - ) Glucose 136 H (65-110) mg/dL Calcium 9.1 (8.4-10.2) mg/dL Total Bilirubin 0.5 (0.2-1.3) mg/dL AST 41 (17-59) U/L ALT 47 (6-50) U/L Alkaline Phosphatase 88 (38-126) U/L Troponin I < 0.012 < 0.012 (0.000-0.034) ng/mL Total Protein 8.4 H (6.3-8.2) g/dL Albumin 5.0 (3.5-5.1) g/dL Lipase 85 (23-300) U/L Urine Opiates Screen Positive A (Negative) Urine Methadone Screen Negative (Negative) Ur Barbiturates Screen Negative (Negative) Ur Phencyclidine Scrn Negative (Negative) Ur Amphetamine Screen Negative (Negative) U Benzodiazepines Scrn Negative (Negative) Urine Cocaine Screen Negative (Negative) U Cannabinoids Screen Negative (Negative) 06/22/25 Range/Units 11:41 WBC (4.5-10.0) K/mm3 RBC (4.6-6.20) M/mm3 Hgb (14.0-18.0) g/dL Hct (42.0-52.0) % MCV (80-100) fl MCH (26-34) pg MCHC (32-36) g/dl RDW (11.5-14.5) % Plt Count (150-375) k/mm3 MPV (7.4-10.4) fl Immature Gran % (Auto) (0-0.5) % Neut % (Auto) (45.5-73.1) % Lymph % (Auto) (18.3-44.2) % Clinch % (Auto) (2.6-8.5) % Eos % (Auto) (0-4.4) % Baso % (Auto) (0.2-1.2) % Lymph # (Auto) (0.9-3.2) K/mm3 Clinch # (Auto) (0.1-0.6) K/mm3 Eos # (Auto) (0-0.3) K/mm3 Baso # (Auto) (0.0-0.1) K/mm3 Abs Immat Gran (auto) (0.00-0.031) K/mm3 Absolute Neuts (auto) (1.3-6.7) K/mm3 Absolute Nucleated RBC (0.0-0.012) K/mm3 Nucleated RBC % (0.0-0.2) % PT (11.1-14.7) Seconds INR APTT (22.3-36.8) Seconds D-Dimer (<0.48) ug/mL Sodium (137-145) mmol/L Potassium (3.4-5.0) mmol/L Chloride (98-107) mmol/L Carbon Dioxide (22-30) mmol/L Anion Gap (4-12) mmol/L BUN (9-20) mg/dL Creatinine (0.7-1.3) mg/dL Estim Creat Clear Calc ml/min Estimated GFR (59 - ) Glucose (65-110) mg/dL Calcium (8.4-10.2) mg/dL Total Bilirubin (0.2-1.3) mg/dL AST (17-59) U/L ALT (6-50) U/L Alkaline Phosphatase (38-126) U/L Troponin I < 0.012 (0.000-0.034) ng/mL Total Protein (6.3-8.2) g/dL Albumin (3.5-5.1) g/dL Lipase (23-300) U/L Urine Opiates Screen (Negative) Urine Methadone Screen (Negative) Ur Barbiturates Screen (Negative) Ur Phencyclidine Scrn (Negative) Ur Amphetamine Screen (Negative) U Benzodiazepines Scrn (Negative) Urine Cocaine Screen (Negative) U Cannabinoids Screen (Negative) <Nicolas Xiong MD - Last Filed: 06/22/25 06:58> Lab Results 06/22/25 06/22/25 06/22/25 Range/Units 06:29 07:18 09:02 WBC 10.6 H (4.5-10.0) K/mm3 RBC 4.93 (4.6-6.20) M/mm3 Hgb 14.2 (14.0-18.0) g/dL Hct 42.1 (42.0-52.0) % MCV 85.4 (80-100) fl MCH 28.8 (26-34) pg MCHC 33.7 (32-36) g/dl RDW 12.8 (11.5-14.5) % Plt Count 219 (150-375) k/mm3 MPV 11.2 H (7.4-10.4) fl Immature Gran % (Auto) 0.5 (0-0.5) % Neut % (Auto) 84.6 H (45.5-73.1) % Lymph % (Auto) 10.7 L (18.3-44.2) % Clinch % (Auto) 3.9 (2.6-8.5) % Eos % (Auto) 0.1 (0-4.4) % Baso % (Auto) 0.2 (0.2-1.2) % Lymph # (Auto) 1.13 (0.9-3.2) K/mm3 Clinch # (Auto) 0.4 (0.1-0.6) K/mm3 Eos # (Auto) 0.0 (0-0.3) K/mm3 Baso # (Auto) 0.0 (0.0-0.1) K/mm3 Abs Immat Gran (auto) 0.05 H (0.00-0.031) K/mm3 Absolute Neuts (auto) 9.0 H (1.3-6.7) K/mm3 Absolute Nucleated RBC 0.000 (0.0-0.012) K/mm3 Nucleated RBC % 0.0 (0.0-0.2) % PT 12.4 (11.1-14.7) Seconds INR 0.9 APTT 24.8 (22.3-36.8) Seconds D-Dimer < 0.27 (<0.48) ug/mL Sodium 135 L (137-145) mmol/L Potassium 3.9 (3.4-5.0) mmol/L Chloride 99 (98-107) mmol/L Carbon Dioxide 23 (22-30) mmol/L Anion Gap 13 H (4-12) mmol/L BUN 14 (9-20) mg/dL Creatinine 0.84 (0.7-1.3) mg/dL Estim Creat Clear Calc 141 ml/min Estimated GFR > 60 (59 - ) Glucose 136 H (65-110) mg/dL Calcium 9.1 (8.4-10.2) mg/dL Total Bilirubin 0.5 (0.2-1.3) mg/dL AST 41 (17-59) U/L ALT 47 (6-50) U/L Alkaline Phosphatase 88 (38-126) U/L Troponin I < 0.012 < 0.012 (0.000-0.034) ng/mL Total Protein 8.4 H (6.3-8.2) g/dL Albumin 5.0 (3.5-5.1) g/dL Lipase 85 (23-300) U/L Urine Opiates Screen Positive A (Negative) Urine Methadone Screen Negative (Negative) Ur Barbiturates Screen Negative (Negative) Ur Phencyclidine Scrn Negative (Negative) Ur Amphetamine Screen Negative (Negative) U Benzodiazepines Scrn Negative (Negative) Urine Cocaine Screen Negative (Negative) U Cannabinoids Screen Negative (Negative) 06/22/25 Range/Units 11:41 WBC (4.5-10.0) K/mm3 RBC (4.6-6.20) M/mm3 Hgb (14.0-18.0) g/dL Hct (42.0-52.0) % MCV (80-100) fl MCH (26-34) pg MCHC (32-36) g/dl RDW (11.5-14.5) % Plt Count (150-375) k/mm3 MPV (7.4-10.4) fl Immature Gran % (Auto) (0-0.5) % Neut % (Auto) (45.5-73.1) % Lymph % (Auto) (18.3-44.2) % Clinch % (Auto) (2.6-8.5) % Eos % (Auto) (0-4.4) % Baso % (Auto) (0.2-1.2) % Lymph # (Auto) (0.9-3.2) K/mm3 Clinch # (Auto) (0.1-0.6) K/mm3 Eos # (Auto) (0-0.3) K/mm3 Baso # (Auto) (0.0-0.1) K/mm3 Abs Immat Gran (auto) (0.00-0.031) K/mm3 Absolute Neuts (auto) (1.3-6.7) K/mm3 Absolute Nucleated RBC (0.0-0.012) K/mm3 Nucleated RBC % (0.0-0.2) % PT (11.1-14.7) Seconds INR APTT (22.3-36.8) Seconds D-Dimer (<0.48) ug/mL Sodium (137-145) mmol/L Potassium (3.4-5.0) mmol/L Chloride (98-107) mmol/L Carbon Dioxide (22-30) mmol/L Anion Gap (4-12) mmol/L BUN (9-20) mg/dL Creatinine (0.7-1.3) mg/dL Estim Creat Clear Calc ml/min Estimated GFR (59 - ) Glucose (65-110) mg/dL Calcium (8.4-10.2) mg/dL Total Bilirubin (0.2-1.3) mg/dL AST (17-59) U/L ALT (6-50) U/L Alkaline Phosphatase (38-126) U/L Troponin I < 0.012 (0.000-0.034) ng/mL Total Protein (6.3-8.2) g/dL Albumin (3.5-5.1) g/dL Lipase (23-300) U/L Urine Opiates Screen (Negative) Urine Methadone Screen (Negative) Ur Barbiturates Screen (Negative) Ur Phencyclidine Scrn (Negative) Ur Amphetamine Screen (Negative) U Benzodiazepines Scrn (Negative) Urine Cocaine Screen (Negative) U Cannabinoids Screen (Negative) <Cirilo Watts MD - Last Filed: 06/22/25 12:38> Imaging Data Attestation: I personally reviewed and interpreted this imaging study as follows: < Nicolas Xiong MD - Last Filed: 06/22/25 06:58> My impression: Impressions Chest X-Ray 06/22/25 06:26 IMPRESSION: 1. No acute cardiopulmonary findings given portable technique. <Nicolas Xiong MD - Last Filed: 06/22/25 06:58> Discharge Plan Discharge Clinical Impression: Chest pain <Nicolas Xiong MD - Last Filed: 06/22/25 06:58> Patient Disposition: Home <Nicolas Xiong MD - Last Filed: 06/22/25 06:58> Condition: Stable <Nicolas Xiong MD - Last Filed: 06/22/25 06:58> Instructions: Chest Pain (ED) <Nicolas Xiong MD - Last Filed: 06/22/25 06:58> Additional Instructions: Please return to the emergency department if you develop severe and persistent chest pain, difficulty breathing, dizziness, leg swelling or if you are coughing up blood as these can be signs of a medical emergency. Please call your doctor for a follow up appointment to determine the need for further testing. <Nicolas Xiong MD - Last Filed: 06/22/25 06:58> Patient Language: Guatemalan <Nicolas Xiong MD - Last Filed: 06/22/25 06:58> Prescriptions: New pantoprazole 20 mg tablet,delayed release (DR/EC) 20 mg PO HS 28 Days Qty: 28 0RF <Nicolas Xiong MD - Last Filed: 06/22/25 06:58> Follow-up/Referrals: Raissa Pichardo DO [Physician, Family Practice] - 1 Week <Nicolas Xiong MD - Last Filed: 06/22/25 06:58> Quality HEART score for chest pain patients History: moderately suspicious <Cirilo Watts MD - Last Filed: 06/22/25 12:38> ECG: normal <Cirilo Watts MD - Last Filed: 06/22/25 12:38> Age: < or = to 45 years <Cirilo Watts MD - Last Filed: 06/22/25 12:38> Risk factors: no risk factors known <Cirilo Watts MD - Last Filed: 06/22/25 12:38> Troponin: < or = to 1x normal limit <Cirilo Watts MD - Last Filed: 06/22/25 12:38> Heart score: 1 <Cirilo Watts MD - Last Filed: 06/22/25 12:38>
[2025-06-22] MEDS: HYDROmorphone HCL INJ (*CRX) 1 MG/ML SYR IV PUSH (06:30)
[2025-06-22] MEDS: ONDANSETRON INJ 4 MG/2 ML VIAL IV PUSH (06:30)
[2025-06-22] MEDS: NITROGLYCERIN OINTMENT 1 INCH DOSE TRANSDERM (06:30)
[2025-06-22] MEDS: LACTATED RINGERS 1,000 ML 999 ML IV CONT (06:30)
[2025-06-22 06:54] LABS: Hematocrit 42.1 % (42.0-52.0); Hemoglobin 14.2 g/dL (14.0-18.0); Immature Granulocyte Percent A 0.5 % (0-0.5); Lymphocytes Absolute Auto 1.13 K/mm3 (0.9-3.2); Mean Corpuscular HGB Conc 33.7 g/dl (32-36); Mean Corpuscular Hemoglobin 28.8 pg (26-34); Mean Corpuscular Volume 85.4 fl (80-100); Nucleated Red Blood Cells Absolute Auto 0.000 K/mm3 (0.0-0.012); Nucleated Red Blood Cells Perc 0.0 % (0.0-0.2); Platelet Count Result 219 k/mm3 (150-375); Red Blood Count 4.93 M/mm3 (4.6-6.20); White Blood Count 10.6 K/mm3 (4.5-10.0)
[2025-06-22 07:05] LABS: INR 0.9; Prothrombin Time 12.4 Seconds (11.1-14.7)
[2025-06-22 07:06] LABS: Partial Thromboplastin Time 24.8 Seconds (22.3-36.8)
[2025-06-22 07:10] LABS: Albumin Level 5.0 g/dL (3.5-5.1); Alkaline Phosphatase 88 U/L (38-126); Anion Gap 13 mmol/L (4-12); Bilirubin,Total 0.5 mg/dL (0.2-1.3); Blood Urea Nitrogen 14 mg/dL (9-20); Carbon Dioxide 23 mmol/L (22-30); Chloride 99 mmol/L (98-107); Estimated CRCL calculation 141 ml/min; Estimated Glomerular Filt Rate > 60; Lipase 85 U/L (23-300); Potassium 3.9 mmol/L (3.4-5.0); Sodium 135 mmol/L (137-145); Total Protein 8.4 g/dL (6.3-8.2)
[2025-06-22 07:17] LABS: Troponin I < 0.012 ng/mL (0.000-0.034)
[2025-06-22 07:21] LABS: Alanine Aminotransferase 47 U/L (6-50); Aspartate Amino Transferase 41 U/L (17-59); Calcium 9.1 mg/dL (8.4-10.2); Glucose 136 mg/dL (65-110)
--- NOTE | 2025-06-22 07:21 | ECG_ITS ---
Test Date: 2025-06-22 08:35:48 Measurements Intervals [place] Rate: 92 P: 42 RI: 177 QRS: -20 QRSD: 98 T: 17 QT: 344 QTc: 426 Interpretive Statements SINUS RHYTHM VOLTAGE CRITERIA FOR LVH [MEETS CRITERIA IN ONE OF: R(aVL), S(V1), R(V5), R(V5/V6)+S(V1)] Compared to ECG 06/22/2025 06:15:27 No significant changes Electronically Signed On 06-22-2025 12:06:23 EXHIBITS MANAGER by Delano George M.D.
[2025-06-22 08:30] LABS: Cannabinoid Screen Urine Negative (Negative)
[2025-06-22 09:34] LABS: Troponin I < 0.012 ng/mL (0.000-0.034)
--- NOTE | 2025-06-22 11:10 | PC.NURSE ---
Report given to CINDI Chin
[2025-06-22 12:08] LABS: Troponin I < 0.012 ng/mL (0.000-0.034)
== END 2025-06-22 12:58 | disposition home or self-care (01) ==
PROVIDERS: Student in an Organized Health Care Education/Training Program; Emergency Provider Emergency Medicine
DX: R07.9 Chest pain, unspecified (principal)
CPT/HCPCS: 36415; 71045; 80053; 80307; 83690; 84484; 85025; 85380; 85610; 85730; 93005; 96361; 96374; 96375; 99284; A9270; J1171; J2405; J7120